=== PATIENT | female | born 1945 | race Caucasian/White ===

== ENCOUNTER 2020-01-29 11:05 | Inpatient (IN) ==
[~2020-01-29 11:05] MED LIST: ASPIRIN CHEW 81 MG TABLET PO ONE; DIAZEPAM 5 MG TABLET PO ONE; MAGNESIUM SULF RIDER 2 GM in PREMIX 1 EACH IV PRN; POTASSIUM CHLORIDE RIDER 10 MEQ in PREMIX 1 EACH IV PRN; SODIUM CHLORIDE 0.9% 1,000 ML IV SCH; diphenhydrAMINE CAP 25 MG CAPSULE PO ONE
[2020-01-29] MEDS ORDERED: diphenhydrAMINE CAP 25 MG CAPSULE ONE (12:36)
[2020-01-29] MEDS ORDERED: DIAZEPAM 5 MG TABLET ONE (12:36)
[2020-01-29] MEDS ORDERED: LIDOCAINE 1% 20 ML VIAL ONE (12:41)
[2020-01-29] MEDS ORDERED: ATROPINE 1 MG/10 ML SYRINGE ONE (14:19)
[2020-01-29] MEDS ORDERED: HEPARIN 5,000 UNIT/1 ML VIAL ONE (14:35)
[2020-01-29] MEDS ORDERED: fentaNYL 100 MCG/2 ML VIAL ONE (15:10)
[2020-01-29 16:21] LABS: Apearance,Urine CLEAR (Clear); Bilirubin,Urine Negative (Negative); Blood, Urine Negative (Negative); Glucose,Urine (UA) Negative (Negative); Ketones,Urine Negative (Negative); Nitrite,Urine Negative (Negative); Protein,Urine Negative; RBC,Urine 2 /HPF (0-4); Urine Color Yellow (Yellow); Urine Specific Gravity 1.034 (1.001-1.035); Urine Urobilinogen < 2.0 EU/DL (0.2-1.0); WBC,Urine <1 /HPF (0-6)
[2020-01-29] MEDS ORDERED: MAGNESIUM SULF RIDER 2 GM in PREMIX 1 EACH IV PRN (17:00)
[2020-01-29] MEDS ORDERED: MAGNESIUM SULF RIDER 4 GM in PREMIX 1 EACH IV PRN (17:00)
[2020-01-29] MEDS ORDERED: SIMETHICONE CHEW 125 MG TABLET PO PRN (17:00)
[2020-01-29] MEDS ORDERED: SODIUM CHLORIDE 0.9% 1,000 ML IV SCH (18:30)
[2020-01-29] MEDS: ALBUTEROL 2.5 MG/3 ML NEB RESP TX SCH (20:20)
[2020-01-29] MEDS ORDERED: ZALEPLON 5 MG CAPSULE PO PRN (21:00)
[2020-01-30] MEDS: ALBUTEROL 2.5 MG/3 ML NEB RESP TX SCH ×5 (00:46→19:04)
[2020-01-30 04:17] LABS: Basophils % 0.1 % (0.0-0.8); Hemoglobin 10.6 GM/DL (12.0-16.0); Immature Granulocytes % 0.5 %; Immature Granulocytes Absolute 0.04 #; Lymphocytes # 1.2 10*3/uL (1.4-4.0); Lymphocytes % 13.8 % (21.3-54.2); Mean Corpuscular HGB Conc 31.2 GM/DL (32-36); Mean Corpuscular Volume 98.3 FL (87-102); Mean Platelet Volume 11.3 FL (9.6-12.0); Monocytes % 5.4 % (1.7-12.7); Neutrophils % 80.2 % (38.7-73.9); Platelet Count 129 T/CUMM (130-400); Red Blood Count 3.46 MC/CUMM (3.8-5.5); Red Cell Distribution Width 13.7 % (9.3-17.3); White Blood Count 8.5 T/CUMM (4-12)
[2020-01-30 04:48] LABS: Hypochromasia 1+
[2020-01-30 04:49] LABS: Platelet Estimate Normal
[2020-01-30 04:51] LABS: Albumin 2.8 G/DL (3.4-5.0); Bilirubin,Total 0.5 MG/DL (0.2-1.0); Calcium 8.3 MG/DL (8.5-10.1); Osmolality,Calculated 288.1 MOS/KG (273-304); Total Protein 7.4 G/DL (6.4-8.3)
[2020-01-30] MEDS ORDERED: DEXMEDETOMIDINE 200 MCG/2 ML VIAL ONE (07:16)
[2020-01-30] MEDS ORDERED: HEPARIN/NACL 0.9% 2 UNITS/ML 500 ML IV ONE (07:57)
[2020-01-30] MEDS ORDERED: LIDOCAINE 1% 20 ML VIAL ONE (07:57)
[2020-01-30 08:05] LABS: INR 1.1; PT Patient Result 11.4 SECS (9.8-11.9); Partial Thromboplastin Time 27.4 SECS (23.9-33.8)
[2020-01-30] MEDS ORDERED: methylPREDNISolone SOD SUC 125 MG/2 ML VIAL ONE ×2 (08:11→09:42)
[2020-01-30] MEDS ORDERED: ceFAZolin 1,000 MG VIAL ONE (08:12)
[2020-01-30] MEDS ORDERED: POLYETHYLENE GLYCOL POWDER 17 GM PACK PO PRN (09:00)
[2020-01-30] MEDS ORDERED: LIDOCAINE 1%/EPI INJ 20 ML VIAL ONE (09:22)
[2020-01-30] MEDS ORDERED: ALUMINUM/MAGNES/SIMETH MAX STR 30 ML UDCUP PO PRN (09:36)
[2020-01-30] MEDS ORDERED: ONDANSETRON 4 MG/2 ML VIAL IV PRN (09:36)
[2020-01-30] MEDS ORDERED: ACETAMINOPHEN 325 MG TABLET PO PRN (09:36)
[2020-01-30] MEDS ORDERED: HEPARIN 10,000 UNIT/10 ML VIAL ONE (09:41)
[2020-01-30] MEDS ORDERED: fentaNYL 100 MCG/2 ML VIAL ONE (09:41)
[2020-01-30] MEDS ORDERED: propofoL 200 MG/20 ML VIAL IV ONE (09:41)
[2020-01-30] MEDS ORDERED: diphenhydrAMINE 50 MG/1 ML VIAL ONE (09:42)
[2020-01-30] MEDS: PANTOPRAZOLE 40 MG TABLET PO SCH (10:40)
[2020-01-30] MEDS: ASPIRIN EC 81 MG TABLET PO SCH (10:40)
[2020-01-30] MEDS: CYANOCOBALAMIN 500 MCG TABLET PO SCH (10:40)
[2020-01-30] MEDS: busPIRone 15 MG TABLET PO SCH (10:40)
[2020-01-31 06:17] LABS: Basophils % 0.1 % (0.0-0.8); Hematocrit 30.8 VOL% (35.7-47.0); Hemoglobin 9.7 GM/DL (12.0-16.0); Immature Granulocytes % 0.5 %; Immature Granulocytes Absolute 0.06 #; Lymphocytes # 1.6 10*3/uL (1.4-4.0); Lymphocytes % 13.9 % (21.3-54.2); Mean Corpuscular HGB Conc 31.5 GM/DL (32-36); Mean Corpuscular Volume 98.4 FL (87-102); Mean Platelet Volume 11.3 FL (9.6-12.0); Monocytes % 4.3 % (1.7-12.7); Neutrophils % 81.2 % (38.7-73.9); Platelet Count 141 T/CUMM (130-400); Red Blood Count 3.13 MC/CUMM (3.8-5.5); Red Cell Distribution Width 13.9 % (9.3-17.3); White Blood Count 11.8 T/CUMM (4-12)
[2020-01-31 06:38] LABS: Calcium 8.5 MG/DL (8.5-10.1); Osmolality,Calculated 279.5 MOS/KG (273-304)
[2020-01-31] MEDS: ALBUTEROL 2.5 MG/3 ML NEB RESP TX SCH ×2 (07:30→10:40)
[2020-01-31 08:18] VITALS: BP 140/60
[2020-01-31] MEDS: PANTOPRAZOLE 40 MG TABLET PO SCH (08:57)
[2020-01-31] MEDS: CYANOCOBALAMIN 500 MCG TABLET PO SCH (08:57)
[2020-01-31] MEDS: busPIRone 15 MG TABLET PO SCH (08:57)
[2020-01-31] MEDS: ASPIRIN EC 81 MG TABLET PO SCH (08:57)
== END 2020-01-31 12:58 | disposition home or self-care (01) | DRG 229 ==
LOC: N.CL 11:05 → N.ICU 16:35 → N.TELES 01-30 17:46
PROVIDERS: ADMIT Internal Medicine Cardiovascular Disease; ATTEND Internal Medicine Cardiovascular Disease
PROC: CLCCHCL (ICD-10-PCS; 2020-01-29 12:45)
PROC: CLMICRA (2020-01-30 09:45)